=== PATIENT | female | born 1930 | race Caucasian/White ===

== ENCOUNTER 2017-11-22 01:33 | Emergency (ER) | payer MEDICARE ==
[~2017-11-22 01:33] MED LIST: COUMADIN 5MG5 MG/TAB PO; METOPROLOL SUCC50 M2 PO; NEXIUM 40MG40 MG PEG; NORVASC2.5 MG PO
[2017-11-22] MEDS ORDERED: COUMADIN 22.5 MG/TAB PO (01:41)
[2017-11-22 03:20] LABS: BUN/CREATININE RATIO 15.3 (6.0-26.0); CALCIUM 9.1 mg/dL (8.4-10.2); POTASSIUM 4.1 mmol/L (3.6-5.0); TOTAL BILIRUBIN 0.4 mg/dL (0.2-1.3); TOTAL PROTEIN 7.2 g/dL (6.3-8.2)
[2017-11-22 03:24] LABS: PROTHROMBIN TIME 35.8 SECONDS (9.0-12.0)
[2017-11-22 03:25] LABS: HEMATOCRIT 41.7 % (37.0-47.0); HEMOGLOBIN 13.7 g/dL (12.5-16.0); MEAN CELL VOLUME 94 fl (78-100); MEAN CORPUSCULAR HEMOGLOBIN 31 pg (27-31); MEAN CORPUSCULAR HGB CONC 33 g/dL (33-37); MEAN PLATELET VOLUME 10.4 fl (7.4-10.4); PLATELET COUNT 250 K/mm3 (130-400); RED BLOOD COUNT 4.45 M/mm3 (4.10-5.30); RED CELL DISTRIBUTION WIDTH 13.7 % (11.5-14.5); WHITE BLOOD COUNT 10.5 K/mm3 (4.8-10.8)
[2017-11-22 03:34] LABS: LYMPHOCYTE 15 % (20-51); NEUTROPHILS 70 % (42-75)
[2017-11-22 03:35] LABS: MONOCYTE 12 % (3-10)
[2017-11-22 04:21] LABS: ERYTHROCYTE SEDIMENTATION RATE 23 mm/hr (0-30)
[2017-11-22 05:17] VITALS: BP 147/98
== END 2017-11-22 05:17 | disposition home or self-care (01) ==
LOC: ED 01:33
PROVIDERS: Family Medicine
DX: M75.52 Bursitis of left shoulder (principal); I48.91 Unspecified atrial fibrillation; I10 Essential (primary) hypertension; Z79.01 Long term (current) use of anticoagulants; M79.1 Myalgia; T50.4X5A Adverse effect of drugs affecting uric acid metabolism, initial encounter; R53.1 Weakness; R79.1 Abnormal coagulation profile; T45.515A Adverse effect of anticoagulants, initial encounter

== ENCOUNTER → 2017-11-27 | Outpatient (CLI) | payer MEDICARE ==
[2017-11-22 05:17] VITALS: BP 147/98
[~2017-11-27] MED LIST changes: +COUMADIN 22.5 MG/TAB PO
[2017-11-27 11:58] LABS: PROTHROMBIN TIME 20.8 SECONDS (9.0-12.0)
== END ==
LOC: LAB 10:02
DX: I48.0 Paroxysmal atrial fibrillation (principal)

== ENCOUNTER → 2017-11-30 | Outpatient (CLI) | payer MEDICARE ==
[2017-11-22 05:17] VITALS: BP 147/98
[~2017-11-30] MED LIST changes: +METOPROLOL SUCC50 M1 PO; -METOPROLOL SUCC50 M2 PO
[2017-11-30 19:37] LABS: URINE APPEARANCE CLEAR; URINE COLOR YELLOW
[2017-11-30 19:38] LABS: URINE BILIRUBIN NEGATIVE (NEGATIVE); URINE BLOOD NEGATIVE (NEGATIVE); URINE GLUCOSE NEGATIVE (NEGATIVE); URINE KETONE NEGATIVE (NEGATIVE); URINE LEUKOCYTE ESTERASE NEGATIVE (NEGATIVE); URINE NITRATE NEGATIVE (NEGATIVE); URINE PROTEIN(semi-quant) NEGATIVE (NEGATIVE); URINE UROBILINOGEN NORMAL (NORMAL); URINE WBC 0-1 /hpf (0-3)
== END ==
LOC: LAB 16:01
PROVIDERS: Nurse Practitioner Family
DX: R53.81 Other malaise (principal); R22.31 Localized swelling, mass and lump, right upper limb; M25.521 Pain in right elbow; M21.949 Unspecified acquired deformity of hand, unspecified hand

== ENCOUNTER → 2017-12-01 | Outpatient (CLI) | payer MEDICARE ==
[2017-11-22 05:17] VITALS: BP 147/98
== END ==
LOC: RAD 10:49
DX: R22.31 Localized swelling, mass and lump, right upper limb (principal); M79.641 Pain in right hand; R60.0 Localized edema

== ENCOUNTER 2017-12-02 16:24 | Emergency (ER) | payer MEDICARE ==
[~2017-12-02] VITALS: Wt 67.3 kg
[2017-12-02 17:54] LABS: HEMATOCRIT 43.9 % (37.0-47.0); HEMOGLOBIN 14.1 g/dL (12.5-16.0); MEAN CELL VOLUME 95 fl (78-100); MEAN CORPUSCULAR HEMOGLOBIN 31 pg (27-31); MEAN CORPUSCULAR HGB CONC 32 g/dL (33-37); MEAN PLATELET VOLUME 10.3 fl (7.4-10.4); PLATELET COUNT 321 K/mm3 (130-400); RED BLOOD COUNT 4.62 M/mm3 (4.10-5.30); RED CELL DISTRIBUTION WIDTH 14.1 % (11.5-14.5); WHITE BLOOD COUNT 14.5 K/mm3 (4.8-10.8)
[2017-12-02 18:00] LABS: PROTHROMBIN TIME 35.9 SECONDS (9.0-12.0)
[2017-12-02 18:05] LABS: ALBUMIN 4.3 g/dL (3.5-5.0); CALCIUM 9.5 mg/dL (8.4-10.2); POTASSIUM 4.5 mmol/L (3.6-5.0); TOTAL BILIRUBIN 0.3 mg/dL (0.2-1.3)
[2017-12-02 18:12] LABS: CKMB ISOENZYME 1.8 ng/mL (0.6-3.5)
[2017-12-02 18:17] LABS: D-DIMER 0.06 mg/L FEU (0.15-0.50)
[2017-12-02 18:18] LABS: LYMPHOCYTE 6 % (20-51); MONOCYTE 4 % (3-10); NEUTROPHILS 89 % (42-75); TROPONIN-I < 0.03 ng/mL (0.00-0.06)
[2017-12-02 18:40] VITALS: BP 143/93
== END 2017-12-02 19:22 | disposition home or self-care (01) ==
LOC: ED 16:24
PROVIDERS: Nurse Practitioner Primary Care
DX: R07.89 Other chest pain (principal); R11.0 Nausea; R79.89 Other specified abnormal findings of blood chemistry; R06.02 Shortness of breath; I48.91 Unspecified atrial fibrillation; Z79.01 Long term (current) use of anticoagulants; I25.10 Atherosclerotic heart disease of native coronary artery without angina pectoris; K21.9 Gastro-esophageal reflux disease without esophagitis; I10 Essential (primary) hypertension; Z85.3 Personal history of malignant neoplasm of breast